=== PATIENT | male | born 1940 | race Caucasian/White ===

== ENCOUNTER → 2019-08-25 11:25 | Outpatient (CLI) | payer MEDICARE ==
--- NOTE | ~2019-08-25 | EC ---
PATIENT:QUINN IVY DATE OF SERVICE: 08/25/19 SEX: M MEDICAL RECORD: [id number] DATE OF : 36 LOCATION:D[facility] AGE OF PATIENT: 79 ADMISSION DATE: 08/25/19 REFERRING PHYSICIAN: INTERPRETING PHYSICIAN: AC LANIER MD ECHOCARDIOGRAM REPORT ECHO CHARGES 4 ECHO COMPLETE Date: 08/25/19 CLINICAL DIAGNOSIS: CAD/HTN/ASSESS EF AND VALVES ECHOCARDIOGRAPHIC MEASUREMENTS (adult normal given) AC root (d.<3.7cm) 4.4 cm LV Septum d (<1.2 cm> 1.2 cm Valve Excursion 1.3 cm LV Septum (systole) 1.5 cm Left Atria (s.<4.0cm> 4.0 cm LVPW d(<1.2cm) 1.6 cm RV (d.<2.3cm) 3.7 cm LVPW (sytole) 1.7 cm LV diastole(<5.6CM) 6.5 cm MV E-F(>70mm/sec) cm LV systole 5.5 cm LVOT Diameter 1.7 cm MV exc.(>10mm) 2.1 cm Est.ejection fraction (50-75%) % DOPPLER: LVIT cm/sec A 74.0 cm/sec E 94.0 cm/sec LA cm/sec RVSP 29 mmHg LVOT 149 cm/sec AOP1/2T 650 m/s Asc. Ao 163 cm/sec RVOT 76 cm/sec RA cm/sec PA 133 cm/sec AV Gradient Peak 10.61mmHg AV Mean 6.02 mmHg AV Area 2.1 cm MV Gradient Peak 4.51 mmHg MV Mean 1.54 mmHg MV Area cm COMMENTS: Basic Sciences Dean: 2 TING RIVERA Diamond Sizer And Sorter: 3 Dr. Horne TAPE# PACS Pericardial Effusion N DATE OF SERVICE: Adequate 2D, color flow imaging, spectral Doppler, and M-Mode Mild LVH. LV internal dimension is normal. Wall motion is normal. EF is greater than or equal to 55%. Aortic valve is sclerotic. No evidence of stenosis by Doppler interrogation. Left atrium is normal at 4.8 cm. Mitral valve shows no prolapse. Trace MR. Right-sided chambers are grossly normal. Mild TR. ECHOCARDIOGRAM REPORT [id number] QUINN IVY TRANSINT:[id number] Voice Confirmation ID: [id number] DOCUMENT ID: [id number] AC LANIER MD CC: [id number] DICTATION DATE: 08/27/19 1335 REHABILITATION AIDE/SCHEDULER: 08/27/19 1508 DEP CLI 08/25/19 [place] [id number]
== END | disposition home or self-care (01) ==
LOC: D.HCCECHO 11:25
PROVIDERS: ATTEND Internal Medicine Interventional Cardiology
DX: I25.10 Atherosclerotic heart disease of native coronary artery without angina pectoris (principal)

== ENCOUNTER → 2019-10-03 11:02 | Outpatient (CLI) | payer MEDICARE | END | disposition home or self-care (01) | LOC: D.MRI 11:02 | PROVIDERS: ATTEND Orthopaedic Surgery | DX: M54.16 Radiculopathy, lumbar region (principal) ==

== ENCOUNTER → 2019-12-19 07:50 | Outpatient (CLI) | payer MEDICARE | END | disposition home or self-care (01) | LOC: D.CT 07:50 | PROVIDERS: ATTEND Family Medicine | DX: R10.31 Right lower quadrant pain (principal) ==